=== PATIENT | male | born 1990 | race Caucasian/White ===

== ENCOUNTER 2016-11-01 18:03 | Emergency (ER) | payer MEDICAID ==
[~2016-11-01] VITALS: Ht 180.3 cm; Wt 98.7 kg
[2016-11-01] MEDS ORDERED: PLEASE ENTER ALLERGIES MC SCH ×2 (18:30)
[2016-11-01] MEDS ORDERED: LORazepam 1MG TABLET PO ONE ×2 (18:30→21:00)
[2016-11-01] MEDS ORDERED: ZIPRASIDONE 20MG CAPSULE PO STA (19:14)
[2016-11-01 19:15] LABS: BLOOD UREA NITROGEN 8 mg/dL (7-18)
[2016-11-01] MEDS ORDERED: HYDR25TA11 PO (19:17)
[2016-11-01] MEDS ORDERED: ZIPR20CA3 PO (19:17)
[2016-11-01] MEDS ORDERED: METH10TA4 PO (19:17)
[2016-11-01 19:20] LABS: ACETAMINOPHEN < 2 mcg/mL (10-30)
[2016-11-01] MEDS ORDERED: ZIPRASIDONE 20MG CAPSULE ONE (19:20)
[2016-11-01 23:12] VITALS: BP 137/78
== END 2016-11-01 23:14 | disposition home or self-care (01) ==
LOC: ED 22:04
DX: F41.1 Generalized anxiety disorder (principal); F43.12 Post-traumatic stress disorder, chronic; F90.9 Attention-deficit hyperactivity disorder, unspecified type; F12.10 Cannabis abuse, uncomplicated
CPT/HCPCS: 36415; 80048; 80307; 80329; 82040; 85025; 99284; Q0177; G0480

== ENCOUNTER 2016-11-04 18:22 | Observation (INO) | payer MEDICAID ==
[~2016-11-04] VITALS: Ht 180.3 cm; Wt 98.6 kg
[~2016-11-04 18:22] MED LIST: HYDR25TA11 PO; METH10TA4 PO; ZIPR20CA3 PO
[2016-11-04 19:12] LABS: DAU SCREEN DISCLAIMER
[2016-11-04 19:16] LABS: ASPARTATE AMINO TRANSFERASE 27 U/L (15-37); BLOOD UREA NITROGEN 17 mg/dL (7-18)
[2016-11-04] MEDS ORDERED: BUPR-173 PO (19:16)
[2016-11-04] MEDS ORDERED: HYDR50TA13 PO (19:16)
[2016-11-04 19:24] LABS: ACETAMINOPHEN < 2 mcg/mL (10-30)
[2016-11-04] MEDS ORDERED: BUPR150T6 PO (22:28)
[2016-11-04] MEDS ORDERED: TRAZODONE 50MG TABLET PO PRN (23:00)
[2016-11-04] MEDS ORDERED: ACETAMINOPHEN 325 MG TABLET PO PRN (23:00)
[2016-11-04 23:33] VITALS: BP 136/87
[2016-11-04] MEDS ORDERED: BUPROPRION MC SCH (23:45)
[2016-11-05] MEDS ORDERED: ZIPRASIDONE 20MG CAPSULE PO ONE (00:30)
[2016-11-05] MEDS ORDERED: hydrOXyzine 50MG TABLET PO SCH (06:00)
[2016-11-05 07:40] VITALS: BP 142/77
[2016-11-05] MEDS ORDERED: ZIPRASIDONE 20MG CAPSULE PO SCH ×2 (09:00→17:00)
[2016-11-05] MEDS ORDERED: TEMPLATE NON-FORMULARY MED. (Bupropion Hcl** (Bupropion Xl**) 150 MG) PO SCH (09:00)
== END 2016-11-05 13:25 ==
LOC: ED 20:37 → EDIP 22:59 → 3E 23:27
PROVIDERS: ADMIT Internal Medicine; ATTEND Internal Medicine
DX: R45.851 Suicidal ideations (principal); R44.0 Auditory hallucinations; F43.10 Post-traumatic stress disorder, unspecified; R73.9 Hyperglycemia, unspecified; F12.90 Cannabis use, unspecified, uncomplicated; Z83.3 Family history of diabetes mellitus
CPT/HCPCS: 36415; 80053; 80307; 80329; 85025; 99285; G0378; Q0177; G0480